=== PATIENT | female | born 1955 | race Caucasian/White ===

== ENCOUNTER 2020-02-03 22:48 | Observation (INO) ==
[2020-02-03] MEDS ORDERED: Aspirin 81 MG TAB.CHEW PO ONE (23:33)
[2020-02-03] MEDS ORDERED: Morphine Sulfate 2 MG/ML SYRINGE IVP ONE (23:55)
[2020-02-03] MEDS ORDERED: Ondansetron 4 MG/2 ML VIAL IVP ONE (23:56)
[2020-02-03 23:59] LABS: Basophils % 0.7 %; Eosinophils # 0.1 K/mcL (0.0-0.6); Eosinophils % 1.7 %; Hematocrit 30.7 % (35.3-44.9); Hemoglobin 9.8 g/dL (11.5-15.4); Immature Granulocytes % 0.3 % (0-4); Lymphocytes # 1.1 K/mcL (0.6-4.6); Lymphocytes % 37.7 %; Mean Corpuscular HGB Conc 31.9 g/dL (31.6-35.5); Mean Corpuscular Hemoglobin 29.3 pg (28.0-33.3); Mean Corpuscular Volume 91.9 fL (83.0-100.0); Mean Platelet Volume 10.4 fL (9.4-12.4); Monocytes # 0.4 K/mcL (0.0-1.3); Monocytes % 12.3 %; Neutrophils # 1.4 K/mcL (1.6-8.9); Platelet Count 102 K/mcL (140-400); Red Blood Count 3.34 M/mcL (3.82-4.97); Red Cell Distribution Width 14.8 % (11.5-14.5); Segmented Neutrophils % 47.3 %
[2020-02-04 00:05] LABS: Prothrombin Time 11.7 Seconds (9.4-12.1)
[2020-02-04 00:06] LABS: Activated Partial Thrombo Time 33.7 Seconds (26.0-36.0)
[2020-02-04 00:09] LABS: BUN/Creatinine Ratio 15 (6-26); Blood Urea Nitrogen 15 mg/dL (8-23); Calcium 8.7 mg/dL (8.6-10.3); Carbon Dioxide 25 mEq/L (23-29); Chloride 102 mEq/L (98-107); Glucose 337 mg/dL (70-105); Osmolality,Calculated 296 (280-300); Potassium 3.8 mEq/L (3.5-5.1); Sodium 136 mEq/L (136-145); eGFR For African Americans > 60 (> 60); eGFR For Non-African Americans 58 (> 60)
[2020-02-04 00:10] LABS: Troponin I < 0.03 ng/mL (< 0.04)
[2020-02-04] MEDS ORDERED: Isovue-370 500 ML BOTTLE IVP ONE (00:17)
[2020-02-04] MEDS ORDERED: Piperacillin/Tazobactam 3.375 GM in 0.9 % Sodium Chloride Mini Bag 100 ML IVPB ONE (02:51)
[2020-02-04] MEDS ORDERED: Furosemide 20 MG/2 ML VIAL IVP ONE (02:55)
[2020-02-04] MEDS ORDERED: Morphine Sulfate 2 MG/ML SYRINGE IVP ONE (02:58)
[2020-02-04] MEDS ORDERED: Ondansetron 4 MG/2 ML VIAL IVP ONE (03:23)
[2020-02-04] MEDS: Nitroglycerin 0.4 MG TAB.SUBL SL SCH ×3 (03:28→03:44)
[2020-02-04] MEDS ORDERED: Naloxone 0.4 MG/ML INJ IVP PRN (04:37)
[2020-02-04] MEDS ORDERED: D5% in Water 1,000 ML IVC PRN (05:15)
[2020-02-04] MEDS ORDERED: *HR* Dextrose 50 % in Water (Syg) 50 ML SYRINGE IVP PRN (05:15)
[2020-02-04] MEDS ORDERED: Dextrose Gel 15 GM/37.5 ML TUBE PO PRN ×2 (05:15)
[2020-02-04 05:39] LABS: Troponin I < 0.03 ng/mL (< 0.04)
[2020-02-04] MEDS: *HR* Heparin 5,000 UNIT/ML VIAL SQ SCH ×2 (06:40→17:29)
[2020-02-04] MEDS ORDERED: Regadenoson 0.4 MG/5 ML SYRINGE IVP ONE (07:43)
[2020-02-04] MEDS: Insulin LISPRO 300 UNITS/3 ML VIAL SQ SCH ×4 (07:52→21:33)
[2020-02-04 08:39] LABS: C-Reactive Protein 9 mg/L (Less than 10)
[2020-02-04] MEDS: Isosorbide MONOnitrate (24 HR) 30 MG TAB.ER.24H PO SCH (08:55)
[2020-02-04] MEDS: carvediloL 6.25 MG TABLET PO SCH ×2 (09:27→21:31)
[2020-02-04] MEDS: Insulin DETEMIR 100 UNIT/ML X5UNITS SQ SCH ×2 (09:28→21:33)
[2020-02-04] MEDS ORDERED: traZODone 50 MG TABLET PO PRN (13:05)
[2020-02-04] MEDS: Sucralfate 1 GM TABLET PO SCH ×2 (17:29→21:31)
[2020-02-04] MEDS: Ondansetron 4 MG/2 ML VIAL IVP PRN (20:04)
[2020-02-04] MEDS ORDERED: traZODone 50 MG TABLET PO SCH (23:00)
[2020-02-04] MEDS ORDERED: traZODone 50 MG TABLET PO ONE (23:46)
[2020-02-05 05:12] LABS: Basophils % 1.1 %; Eosinophils # 0.1 K/mcL (0.0-0.6); Eosinophils % 2.6 %; Hematocrit 30.8 % (35.3-44.9); Hemoglobin 9.7 g/dL (11.5-15.4); Lymphocytes # 1.1 K/mcL (0.6-4.6); Lymphocytes % 40.3 %; Mean Corpuscular HGB Conc 31.5 g/dL (31.6-35.5); Mean Corpuscular Volume 91.9 fL (83.0-100.0); Mean Platelet Volume 10.1 fL (9.4-12.4); Monocytes # 0.3 K/mcL (0.0-1.3); Monocytes % 10.8 %; Neutrophils # 1.2 K/mcL (1.6-8.9); Platelet Count 101 K/mcL (140-400); Red Blood Count 3.35 M/mcL (3.82-4.97); Red Cell Distribution Width 14.6 % (11.5-14.5); Segmented Neutrophils % 45.2 %; White Blood Count 2.7 K/mcL (4.3-11.1)
[2020-02-05 05:23] LABS: BUN/Creatinine Ratio 18 (6-26); Blood Urea Nitrogen 16 mg/dL (8-23); Calcium 8.9 mg/dL (8.6-10.3); Carbon Dioxide 29 mEq/L (23-29); Chloride 102 mEq/L (98-107); Glucose 209 mg/dL (70-105); Osmolality,Calculated 289 (280-300); Sodium 136 mEq/L (136-145); eGFR For African Americans > 60 (> 60); eGFR For Non-African Americans > 60 (> 60)
[2020-02-05] MEDS: *HR* Heparin 5,000 UNIT/ML VIAL SQ SCH ×2 (06:00→17:04)
[2020-02-05] MEDS ORDERED: Regadenoson 0.4 MG/5 ML SYRINGE IVP ONE (06:08)
[2020-02-05] MEDS: Insulin LISPRO 300 UNITS/3 ML VIAL SQ SCH ×4 (07:30→20:53)
[2020-02-05] MEDS: Sucralfate 1 GM TABLET PO SCH ×4 (07:30→20:52)
[2020-02-05] MEDS: Isosorbide MONOnitrate (24 HR) 30 MG TAB.ER.24H PO SCH (10:29)
[2020-02-05] MEDS: carvediloL 6.25 MG TABLET PO SCH ×2 (10:29→20:52)
[2020-02-05] MEDS: Insulin DETEMIR 100 UNIT/ML X5UNITS SQ SCH ×2 (10:35→20:52)
[2020-02-05] MEDS ORDERED: Furosemide 20 MG/2 ML VIAL IVP ONE (13:19)
[2020-02-05] MEDS: Ondansetron 4 MG/2 ML VIAL IVP PRN (15:51)
[2020-02-05] MEDS ORDERED: traZODone 50 MG TABLET PO SCH (21:00)
[2020-02-06] MEDS ORDERED: tiZANidine 4 MG TABLET PO PRN (01:02)
[2020-02-06 05:34] LABS: Hemoglobin 10.2 g/dL (11.5-15.4); Red Cell Distribution Width 14.6 % (11.5-14.5)
[2020-02-06 05:36] LABS: Basophils % 0.7 %; Eosinophils # 0.1 K/mcL (0.0-0.6); Eosinophils % 2.3 %; Hematocrit 32.3 % (35.3-44.9); Immature Granulocytes % 0.3 % (0-4); Immature Platelets 2.1 % (1.1-6.1); Lymphocytes # 1.3 K/mcL (0.6-4.6); Lymphocytes % 42.6 %; Mean Corpuscular HGB Conc 31.6 g/dL (31.6-35.5); Mean Corpuscular Hemoglobin 28.7 pg (28.0-33.3); Mean Corpuscular Volume 90.7 fL (83.0-100.0); Mean Platelet Volume 10.3 fL (9.4-12.4); Monocytes # 0.3 K/mcL (0.0-1.3); Monocytes % 11.1 %; Neutrophils # 1.3 K/mcL (1.6-8.9); Platelet Count 101 K/mcL (140-400); Red Blood Count 3.56 M/mcL (3.82-4.97); White Blood Count 3.1 K/mcL (4.3-11.1)
[2020-02-06 05:49] LABS: BUN/Creatinine Ratio 23 (6-26); Blood Urea Nitrogen 22 mg/dL (8-23); Calcium 8.9 mg/dL (8.6-10.3); Carbon Dioxide 29 mEq/L (23-29); Chloride 101 mEq/L (98-107); Glucose 183 mg/dL (70-105); Osmolality,Calculated 288 (280-300); Potassium 3.7 mEq/L (3.5-5.1); Sodium 135 mEq/L (136-145); eGFR For African Americans > 60 (> 60); eGFR For Non-African Americans 58 (> 60)
[2020-02-06] MEDS: *HR* Heparin 5,000 UNIT/ML VIAL SQ SCH (06:08)
[2020-02-06 07:46] VITALS: BP 136/71
[2020-02-06] MEDS: Insulin LISPRO 300 UNITS/3 ML VIAL SQ SCH (08:06)
[2020-02-06] MEDS: Sucralfate 1 GM TABLET PO SCH (08:06)
[2020-02-06] MEDS: carvediloL 6.25 MG TABLET PO SCH (08:06)
[2020-02-06] MEDS: Isosorbide MONOnitrate (24 HR) 30 MG TAB.ER.24H PO SCH (08:06)
[2020-02-06] MEDS: Insulin DETEMIR 100 UNIT/ML X5UNITS SQ SCH (08:07)
[2020-02-06] MEDS ORDERED: lisinopriL 10 MG TABLET PO SCH (09:00)
== END 2020-02-06 10:26 | disposition home or self-care (01) ==
LOC: 3BNU 22:48 → EMEROOARM 22:48 → 3BNU 02-04 04:26
PROVIDERS: ADMIT Student in an Organized Health Care Education/Training Program; ATTEND Student in an Organized Health Care Education/Training Program

== ENCOUNTER 2020-10-17 10:13 | Inpatient (IN) ==
[2020-10-17 11:57] LABS: Basophils % 0.6 %; Eosinophils # 0.1 K/mcL (0.0-0.6); Eosinophils % 1.7 %; Hematocrit 35.1 % (35.3-44.9); Hemoglobin 11.6 g/dL (11.5-15.4); Immature Granulocytes % 0.3 % (0-4); Lymphocytes # 0.9 K/mcL (0.6-4.6); Lymphocytes % 24.4 %; Mean Corpuscular Hemoglobin 29.8 pg (28.0-33.3); Mean Corpuscular Volume 90.2 fL (83.0-100.0); Mean Platelet Volume 10.5 fL (9.4-12.4); Monocytes # 0.3 K/mcL (0.0-1.3); Monocytes % 8.7 %; Neutrophils # 2.3 K/mcL (1.6-8.9); Platelet Count 108 K/mcL (140-400); Red Blood Count 3.89 M/mcL (3.82-4.97); Segmented Neutrophils % 64.3 %; White Blood Count 3.6 K/mcL (4.3-11.1)
[2020-10-17 12:01] LABS: INR 1.1; Prothrombin Time 13.2 Seconds (9.4-12.1)
[2020-10-17 12:04] LABS: Activated Partial Thrombo Time 29.2 Seconds (26.0-36.0)
[2020-10-17 12:14] LABS: BUN/Creatinine Ratio 21 (6-26); Blood Urea Nitrogen 20 mg/dL (8-23); Calcium 9.3 mg/dL (8.6-10.3); Carbon Dioxide 27 mEq/L (23-29); Chloride 96 mEq/L (98-107); Glucose 383 mg/dL (70-105); Osmolality,Calculated 292 (280-300); Potassium 3.9 mEq/L (3.5-5.1); Sodium 132 mEq/L (136-145); eGFR For African Americans > 60 (> 60); eGFR For Non-African Americans 58 (> 60)
[2020-10-17 12:22] LABS: Troponin I < 0.03 ng/mL (< 0.04)
[2020-10-17] MEDS ORDERED: Naloxone 0.4 MG/ML INJ IVP PRN (14:38)
[2020-10-17] MEDS ORDERED: Aspirin 325 MG TABLET PO ONE (15:07)
[2020-10-17] MEDS ORDERED: Furosemide 20 MG/2 ML VIAL IVP ONE (15:08)
[2020-10-17] MEDS ORDERED: *HR* Dextrose 50 % in Water (Vial) 50 ML VIAL IVP PRN (15:13)
[2020-10-17] MEDS ORDERED: D5% in Water 1,000 ML IVC PRN (15:13)
[2020-10-17] MEDS ORDERED: Dextrose Gel 15 GM/37.5 ML TUBE PO PRN ×2 (15:13)
[2020-10-17] MEDS: Furosemide 40 MG/4 ML VIAL IVP SCH ×2 (18:28→21:20)
[2020-10-17] MEDS: *HR* Heparin 5,000 UNIT/ML VIAL SQ SCH (18:31)
[2020-10-17] MEDS: Insulin LISPRO 300 UNITS/3 ML VIAL SUBQ SCH ×2 (18:32→21:21)
[2020-10-18] MEDS: Ondansetron 4 MG/2 ML VIAL IVP PRN (00:52)
[2020-10-18 02:52] LABS: Thyroid Stimulating Hormone 1.709 mcIU/mL (0.340-5.600)
[2020-10-18 02:55] LABS: Estimated Average Glucose 286 mg/dl; Hemoglobin A1C 11.6 %
[2020-10-18] MEDS: *HR* Heparin 5,000 UNIT/ML VIAL SQ SCH ×2 (06:13→16:20)
[2020-10-18] MEDS: Insulin LISPRO 300 UNITS/3 ML VIAL SUBQ SCH ×4 (10:07→20:42)
[2020-10-18] MEDS: Furosemide 40 MG/4 ML VIAL IVP SCH ×2 (10:07→20:43)
[2020-10-18] MEDS ORDERED: Perflutren Lipid Microsphere 1.3 ML in 0.9 % Sodium Chloride 8.7 ML IVP PRN (12:06)
[2020-10-18] MEDS: Gabapentin 300 MG CAPSULE PO SCH ×2 (16:19→23:24)
[2020-10-18] MEDS: Sucralfate 1 GM TABLET PO SCH ×3 (16:20→20:42)
[2020-10-18] MEDS ORDERED: Isovue-370 500 ML BOTTLE IVP ONE (17:28)
[2020-10-18] MEDS: carvediloL 6.25 MG TABLET PO SCH (20:42)
[2020-10-18] MEDS: traZODone 50 MG TABLET PO SCH (20:44)
[2020-10-19] MEDS: *HR* Heparin 5,000 UNIT/ML VIAL SQ SCH ×2 (05:17→16:57)
[2020-10-19] MEDS ORDERED: Regadenoson 0.4 MG/5 ML SYRINGE IVP ONE (06:28)
[2020-10-19 06:38] LABS: Basophils # 0.1 K/mcL (0.0-0.2); Basophils % 1.2 %; Eosinophils # 0.1 K/mcL (0.0-0.6); Eosinophils % 2.7 %; Hematocrit 36.9 % (35.3-44.9); Hemoglobin 11.8 g/dL (11.5-15.4); Immature Granulocytes % 0.5 % (0-4); Lymphocytes # 1.3 K/mcL (0.6-4.6); Lymphocytes % 32.3 %; Mean Corpuscular Volume 90.7 fL (83.0-100.0); Mean Platelet Volume 10.8 fL (9.4-12.4); Monocytes # 0.5 K/mcL (0.0-1.3); Monocytes % 12.8 %; Platelet Count 123 K/mcL (140-400); Red Blood Count 4.07 M/mcL (3.82-4.97); Red Cell Distribution Width 14.1 % (11.5-14.5); Segmented Neutrophils % 50.5 %; White Blood Count 4.1 K/mcL (4.3-11.1)
[2020-10-19 08:02] LABS: Alanine Aminotransferase 24 Units/L (7-52); Albumin 3.2 g/dL (3.5-5.7); Albumin/Globulin Ratio 0.8 (1.1-2.2); Alkaline Phosphatase 116 Units/L (34-104); Aspartate Amino Transferase 49 Units/L (13-39); BUN/Creatinine Ratio 19 (6-26); Bilirubin,Total 0.8 mg/dL (0.3-1.0); Blood Urea Nitrogen 21 mg/dL (8-23); Calcium 9.2 mg/dL (8.6-10.3); Carbon Dioxide 28 mEq/L (23-29); Chloride 95 mEq/L (98-107); Globulin 4.1 g/dL (2.4-3.5); Glucose 318 mg/dL (70-105); Osmolality,Calculated 287 (280-300); Potassium 3.9 mEq/L (3.5-5.1); Sodium 131 mEq/L (136-145); Total Protein 7.3 g/dL (6.4-8.9); eGFR For African Americans > 60 (> 60); eGFR For Non-African Americans 51 (> 60)
[2020-10-19] MEDS ORDERED: lisinopriL 10 MG TABLET PO SCH (09:00)
[2020-10-19] MEDS ORDERED: Isosorbide MONOnitrate (24 HR) 30 MG TAB.ER.24H PO SCH (09:00)
[2020-10-19] MEDS: Sucralfate 1 GM TABLET PO SCH ×4 (09:20→22:34)
[2020-10-19] MEDS: Gabapentin 300 MG CAPSULE PO SCH ×3 (09:20→23:37)
[2020-10-19] MEDS: Aspirin 81 MG TAB.CHEW PO SCH (09:20)
[2020-10-19] MEDS: Isosorbide MONOnitrate (24 HR) 60 MG TAB.ER.24H PO SCH (09:20)
[2020-10-19] MEDS: Furosemide 40 MG/4 ML VIAL IVP SCH (09:21)
[2020-10-19] MEDS: carvediloL 6.25 MG TABLET PO SCH ×2 (09:21→22:33)
[2020-10-19] MEDS: Insulin DETEMIR 100 UNIT/ML X5UNITS SUBQ SCH ×2 (09:22→22:34)
[2020-10-19] MEDS: Insulin LISPRO 300 UNITS/3 ML VIAL SUBQ SCH ×4 (09:22→22:35)
[2020-10-19] MEDS: Ondansetron 4 MG/2 ML VIAL IVP PRN ×2 (13:26→23:37)
[2020-10-19] MEDS: traZODone 50 MG TABLET PO SCH (22:34)
[2020-10-19 22:57] LABS: Bacteria,Urine Few per hpf (None-Few); Bilirubin,Urine Negative (Negative); Blood,Urine Large (Negative); Clarity,Urine Ex.Turbid (Clear); Color,Urine Yellow (Yellow); Glucose,Urine (UA) 150 mg/dL (Normal); Hyaline Casts,Urine Moderate per lpf (None Seen); Ketones,Urine Negative (Negative); Leukocyte Esterase,Urine Large (Negative); Mucus,Urine Few per lpf (None-Few); Nitrite,Urine Negative (Negative); PH,Urine 5.5 pH Units (5.0-8.0); Protein,Urine 70 mg/dL (Neg-Trace); RBC,Urine 50-100 per hpf (0-3); Specific Gravity,Urine 1.029 (1.010-1.025); Squamous Epithelial Cell,Urine Moderate per hpf (None-Few); WBC,Urine TNTC per hpf (0-3)
[2020-10-20] MEDS: *HR* Heparin 5,000 UNIT/ML VIAL SQ SCH ×2 (04:44→16:54)
[2020-10-20] MEDS: *HR* HYDROcodone/Acet 5/325 mg TABLET PO PRN ×2 (04:44→12:33)
[2020-10-20 05:11] LABS: Calcium 8.4 mg/dL (8.6-10.3); Potassium 3.6 mEq/L (3.5-5.1)
[2020-10-20] MEDS ORDERED: Furosemide 40 MG/4 ML VIAL IVP SCH (09:00)
[2020-10-20] MEDS: Sucralfate 1 GM TABLET PO SCH ×4 (09:08→20:26)
[2020-10-20] MEDS: Gabapentin 300 MG CAPSULE PO SCH ×2 (09:08→16:53)
[2020-10-20] MEDS: Insulin DETEMIR 100 UNIT/ML X5UNITS SUBQ SCH ×2 (09:08→20:28)
[2020-10-20] MEDS: Insulin LISPRO 300 UNITS/3 ML VIAL SUBQ SCH ×7 (09:08→20:28)
[2020-10-20] MEDS: Isosorbide MONOnitrate (24 HR) 60 MG TAB.ER.24H PO SCH (09:08)
[2020-10-20] MEDS: carvediloL 6.25 MG TABLET PO SCH ×2 (09:08→20:26)
[2020-10-20] MEDS: Aspirin 81 MG TAB.CHEW PO SCH (09:08)
[2020-10-20] MEDS ORDERED: 0.9 % Sodium Chloride 1,000 ML IVC SCH (11:15)
[2020-10-20] MEDS: Ondansetron 4 MG/2 ML VIAL IVP PRN ×2 (12:33→20:38)
[2020-10-20] MEDS: traZODone 50 MG TABLET PO SCH (20:27)
[2020-10-21] MEDS: Gabapentin 300 MG CAPSULE PO SCH ×3 (01:05→15:59)
[2020-10-21] MEDS: *HR* HYDROcodone/Acet 5/325 mg TABLET PO PRN ×3 (03:10→15:59)
[2020-10-21] MEDS: cefTRIAXone 1,000 MG in Water for inj. (sterile) 10 ML IVP SCH ×2 (03:11→07:42)
[2020-10-21] MEDS: *HR* Heparin 5,000 UNIT/ML VIAL SQ SCH ×2 (05:26→17:50)
[2020-10-21 05:53] LABS: Basophils % 0.6 %; Eosinophils # 0.1 K/mcL (0.0-0.6); Eosinophils % 3.5 %; Hematocrit 32.8 % (35.3-44.9); Hemoglobin 10.3 g/dL (11.5-15.4); Immature Granulocytes % 0.3 % (0-4); Mean Corpuscular HGB Conc 31.4 g/dL (31.6-35.5); Mean Corpuscular Hemoglobin 28.5 pg (28.0-33.3); Mean Corpuscular Volume 90.9 fL (83.0-100.0); Mean Platelet Volume 10.5 fL (9.4-12.4); Monocytes # 0.4 K/mcL (0.0-1.3); Monocytes % 12.8 %; Neutrophils # 1.9 K/mcL (1.6-8.9); Platelet Count 104 K/mcL (140-400); Red Blood Count 3.61 M/mcL (3.82-4.97); Red Cell Distribution Width 13.7 % (11.5-14.5); Segmented Neutrophils % 53.8 %; White Blood Count 3.5 K/mcL (4.3-11.1)
[2020-10-21 07:09] LABS: BUN/Creatinine Ratio 25 (6-26); Blood Urea Nitrogen 33 mg/dL (8-23); Calcium 8.9 mg/dL (8.6-10.3); Carbon Dioxide 26 mEq/L (23-29); Chloride 95 mEq/L (98-107); Glucose 299 mg/dL (70-105); Osmolality,Calculated 286 (280-300); Potassium 3.6 mEq/L (3.5-5.1); Sodium 129 mEq/L (136-145); eGFR For African Americans 49 (> 60); eGFR For Non-African Americans 40 (> 60)
[2020-10-21] MEDS: Aspirin 81 MG TAB.CHEW PO SCH (07:41)
[2020-10-21] MEDS: carvediloL 6.25 MG TABLET PO SCH ×2 (07:42→21:37)
[2020-10-21] MEDS: Sucralfate 1 GM TABLET PO SCH ×4 (07:42→21:37)
[2020-10-21] MEDS: Isosorbide MONOnitrate (24 HR) 60 MG TAB.ER.24H PO SCH (07:42)
[2020-10-21] MEDS: Insulin LISPRO 300 UNITS/3 ML VIAL SUBQ SCH ×7 (07:43→21:16)
[2020-10-21] MEDS: Insulin DETEMIR 100 UNIT/ML X5UNITS SUBQ SCH ×2 (07:57→21:37)
[2020-10-21] MEDS ORDERED: Nitroglycerin 0.4 MG TAB.SUBL SL PRN (08:02)
[2020-10-21] MEDS ORDERED: Nitroglycerin 0.4 MG TAB.SUBL SL ONE (08:05)
[2020-10-21 08:32] LABS: Troponin I < 0.03 ng/mL (< 0.04)
[2020-10-21] MEDS: traZODone 50 MG TABLET PO SCH (21:38)
[2020-10-22] MEDS: *HR* HYDROcodone/Acet 5/325 mg TABLET PO PRN ×4 (00:11→22:31)
[2020-10-22] MEDS: Gabapentin 300 MG CAPSULE PO SCH ×3 (00:11→15:42)
[2020-10-22 03:15] LABS: Mean Platelet Volume 10.5 fL (9.4-12.4)
[2020-10-22 03:17] LABS: Hematocrit 31.2 % (35.3-44.9); Immature Platelets 2.4 % (1.1-6.1); Mean Corpuscular HGB Conc 32.1 g/dL (31.6-35.5); Mean Corpuscular Hemoglobin 29.2 pg (28.0-33.3); Mean Corpuscular Volume 91.2 fL (83.0-100.0); Red Blood Count 3.42 M/mcL (3.82-4.97); White Blood Count 3.1 K/mcL (4.3-11.1)
[2020-10-22 03:33] LABS: BUN/Creatinine Ratio 27 (6-26); Blood Urea Nitrogen 26 mg/dL (8-23); Calcium 8.8 mg/dL (8.6-10.3); Carbon Dioxide 27 mEq/L (23-29); Chloride 102 mEq/L (98-107); Glucose 239 mg/dL (70-105); Osmolality,Calculated 293 (280-300); Potassium 3.9 mEq/L (3.5-5.1); Sodium 135 mEq/L (136-145); eGFR For African Americans > 60 (> 60); eGFR For Non-African Americans 58 (> 60)
[2020-10-22] MEDS: *HR* Heparin 5,000 UNIT/ML VIAL SQ SCH ×2 (05:43→16:38)
[2020-10-22] MEDS: Aspirin 81 MG TAB.CHEW PO SCH (07:39)
[2020-10-22] MEDS: Sucralfate 1 GM TABLET PO SCH ×4 (07:40→22:30)
[2020-10-22] MEDS: Isosorbide MONOnitrate (24 HR) 60 MG TAB.ER.24H PO SCH (07:40)
[2020-10-22] MEDS: Insulin DETEMIR 100 UNIT/ML X5UNITS SUBQ SCH ×2 (07:40→22:27)
[2020-10-22] MEDS: carvediloL 6.25 MG TABLET PO SCH ×2 (07:40→22:33)
[2020-10-22] MEDS: Insulin LISPRO 300 UNITS/3 ML VIAL SUBQ SCH ×7 (07:40→22:26)
[2020-10-22] MEDS: Ondansetron 4 MG/2 ML VIAL IVP PRN (09:42)
[2020-10-22] MEDS: Furosemide 40 MG TABLET PO SCH (09:42)
[2020-10-22] MEDS ORDERED: polyethylene glycoL 3350 17 GM POWD.PACK PO PRN (13:41)
[2020-10-22] MEDS: traZODone 50 MG TABLET PO SCH (22:31)
[2020-10-23] MEDS: Gabapentin 300 MG CAPSULE PO SCH ×3 (01:05→16:44)
[2020-10-23] MEDS ORDERED: *HR* LORazepam 2 MG/ML VIAL IVP ONE (01:21)
[2020-10-23 04:46] LABS: Hematocrit 31.8 % (35.3-44.9); Immature Platelets 2.2 % (1.1-6.1); Mean Corpuscular HGB Conc 31.4 g/dL (31.6-35.5); Mean Corpuscular Hemoglobin 29.2 pg (28.0-33.3); Mean Platelet Volume 10.3 fL (9.4-12.4); Red Blood Count 3.42 M/mcL (3.82-4.97); Red Cell Distribution Width 14.2 % (11.5-14.5); White Blood Count 3.4 K/mcL (4.3-11.1)
[2020-10-23 05:02] LABS: BUN/Creatinine Ratio 22 (6-26); Blood Urea Nitrogen 20 mg/dL (8-23); Calcium 8.6 mg/dL (8.6-10.3); Carbon Dioxide 30 mEq/L (23-29); Chloride 100 mEq/L (98-107); Glucose 216 mg/dL (70-105); Osmolality,Calculated 291 (280-300); Potassium 3.6 mEq/L (3.5-5.1); Sodium 136 mEq/L (136-145); eGFR For African Americans > 60 (> 60); eGFR For Non-African Americans > 60 (> 60)
[2020-10-23] MEDS: *HR* Heparin 5,000 UNIT/ML VIAL SQ SCH ×2 (07:42→18:27)
[2020-10-23] MEDS: Sucralfate 1 GM TABLET PO SCH ×3 (08:24→16:53)
[2020-10-23] MEDS: Aspirin 81 MG TAB.CHEW PO SCH (08:24)
[2020-10-23] MEDS: *HR* HYDROcodone/Acet 5/325 mg TABLET PO PRN (08:25)
[2020-10-23] MEDS: Furosemide 40 MG TABLET PO SCH (08:25)
[2020-10-23] MEDS: carvediloL 6.25 MG TABLET PO SCH (08:25)
[2020-10-23] MEDS: cefTRIAXone 1,000 MG in Water for inj. (sterile) 10 ML IVP SCH (08:25)
[2020-10-23] MEDS: Isosorbide MONOnitrate (24 HR) 60 MG TAB.ER.24H PO SCH (08:25)
[2020-10-23] MEDS: Insulin LISPRO 300 UNITS/3 ML VIAL SUBQ SCH ×6 (08:29→16:35)
[2020-10-23] MEDS ORDERED: Heparin 1,000 UNITS/500 mL 500 ML ONE (12:26)
[2020-10-23] MEDS ORDERED: *HR* Heparin 10,000 UNIT/10 ML VIAL ONE (12:26)
[2020-10-23] MEDS ORDERED: 0.9 % Sodium Chloride 2,000 ML ONE (12:26)
[2020-10-23] MEDS ORDERED: ISOVUE-370 200 ML INFUS..BTL ONE (12:26)
[2020-10-23] MEDS ORDERED: Nitroglycerin 1,000 MCG/10 ML VIAL IV ONE (12:27)
[2020-10-23] MEDS ORDERED: *HR* Midazolam HCl 2 MG/2 ML VIAL ONE (12:35)
[2020-10-23] MEDS ORDERED: *HR* FentaNYL (PF) 100 MCG/2 ML VIAL ONE (12:36)
[2020-10-23 16:05] VITALS: BP 140/70
[2020-10-23] MEDS: Insulin DETEMIR 100 UNIT/ML X5UNITS SUBQ SCH (16:40)
== END 2020-10-23 19:10 | disposition home or self-care (01) | DRG 286 ==
LOC: EMEROOARM 10:13 → 3BNU 10:13 → SUATTDRO 15:48 → 3BNU 17:26
PROVIDERS: ADMIT Internal Medicine; ATTEND Internal Medicine

== ENCOUNTER 2021-10-25 15:57 | Observation (INO) ==
[2021-10-25] MEDS ORDERED: Ondansetron 4 MG/2 ML VIAL IVP ONE (16:39)
[2021-10-25] MEDS ORDERED: Nitroglycerin 0.4 MG TAB.SUBL SL PRN (16:39)
[2021-10-25] MEDS ORDERED: Morphine Sulfate 2 MG/ML SYRINGE IVP ONE (16:39)
[2021-10-25 18:49] LABS: Basophils % 1.1 %; Eosinophils # 0.1 K/mcL (0.0-0.6); Eosinophils % 2.2 %; Hemoglobin 9.5 g/dL (11.5-15.4); Immature Granulocytes % 0.3 % (0-4); Lymphocytes # 1.3 K/mcL (0.6-4.6); Lymphocytes % 35.4 %; Mean Corpuscular HGB Conc 30.6 g/dL (31.6-35.5); Mean Corpuscular Hemoglobin 29.7 pg (28.0-33.3); Mean Corpuscular Volume 96.9 fL (83.0-100.0); Monocytes # 0.4 K/mcL (0.0-1.3); Monocytes % 9.6 %; Neutrophils # 1.9 K/mcL (1.6-8.9); Platelet Count 111 K/mcL (140-400); Red Cell Distribution Width 14.5 % (11.5-14.5); Segmented Neutrophils % 51.4 %; White Blood Count 3.6 K/mcL (4.3-11.1)
[2021-10-25 18:56] LABS: INR 1.2; Prothrombin Time 13.1 Seconds (9.4-12.1)
[2021-10-25 18:58] LABS: Activated Partial Thrombo Time 35.3 Seconds (26.0-36.0)
[2021-10-25 19:10] LABS: BUN/Creatinine Ratio 12 (6-26); Blood Urea Nitrogen 13 mg/dL (8-23); Calcium 8.6 mg/dL (8.6-10.3); Carbon Dioxide 33 mEq/L (23-29); Chloride 102 mEq/L (98-107); Glucose 58 mg/dL (70-105); Osmolality,Calculated 288 (280-300); Potassium 3.2 mEq/L (3.5-5.1); Sodium 140 mEq/L (136-145); Troponin I < 0.03 ng/mL (< 0.04); eGFR For African Americans > 60 (> 60); eGFR For Non-African Americans 51 (> 60)
[2021-10-25] MEDS ORDERED: Isovue-370 500 ML BOTTLE IVP ONE (19:44)
[2021-10-25 23:05] LABS: Influenza A PCR Negative (Negative); Influenza B PCR Negative (Negative); Resp. Syncytial Virus PCR Negative (Negative)
[2021-10-25 23:06] LABS: SARS-CoV-2 by PCR (In House) Negative (Negative)
[2021-10-26] MEDS ORDERED: Melatonin 3 MG TABLET PO PRN (00:05)
[2021-10-26] MEDS ORDERED: Naloxone 0.4 MG/ML INJ IVP PRN (00:05)
[2021-10-26] MEDS ORDERED: D5% in Water 1,000 ML IVC PRN (00:07)
[2021-10-26] MEDS ORDERED: Dextrose Gel 15 GM/37.5 ML TUBE PO PRN ×2 (00:07)
[2021-10-26] MEDS ORDERED: *HR* Dextrose 50 % in Water (Syg) 50 ML SYRINGE IVP PRN (00:07)
[2021-10-26] MEDS ORDERED: Ondansetron 4 MG/2 ML VIAL IVP PRN (01:50)
[2021-10-26] MEDS ORDERED: *HR* HYDROcodone/Acet 5/325 mg TABLET PO PRN (01:53)
[2021-10-26] MEDS ORDERED: Perflutren Lipid Microsphere 1.3 ML in 0.9 % Sodium Chloride 8.7 ML IVP PRN (02:22)
[2021-10-26 02:27] LABS: Hematocrit 30.2 % (35.3-44.9); Hemoglobin 9.5 g/dL (11.5-15.4); Mean Corpuscular HGB Conc 31.5 g/dL (31.6-35.5); Mean Corpuscular Hemoglobin 30.8 pg (28.0-33.3); Mean Corpuscular Volume 98.1 fL (83.0-100.0); Mean Platelet Volume 9.8 fL (9.4-12.4); Platelet Count 108 K/mcL (140-400); Red Blood Count 3.08 M/mcL (3.82-4.97); Red Cell Distribution Width 14.6 % (11.5-14.5); White Blood Count 4.4 K/mcL (4.3-11.1)
[2021-10-26 02:51] LABS: BUN/Creatinine Ratio 11 (6-26); Blood Urea Nitrogen 12 mg/dL (8-23); Calcium 8.6 mg/dL (8.6-10.3); Carbon Dioxide 29 mEq/L (23-29); Chloride 102 mEq/L (98-107); Glucose 176 mg/dL (70-105); Magnesium 1.7 mg/dL (1.6-2.6); Osmolality,Calculated 286 (280-300); Phosphorous 3.5 mg/dL (2.7-4.5); Potassium 3.8 mEq/L (3.5-5.1); Sodium 136 mEq/L (136-145); Troponin I < 0.03 ng/mL (< 0.04); eGFR For African Americans > 60 (> 60); eGFR For Non-African Americans 52 (> 60)
[2021-10-26] MEDS ORDERED: *HR* LORazepam 0.5 MG TABLET PO PRN (03:37)
[2021-10-26] MEDS ORDERED: GI Cocktail 40 ML EACH PO ONE (03:37)
[2021-10-26] MEDS ORDERED: *HR* Heparin 5,000 UNIT/ML VIAL SQ SCH (06:00)
[2021-10-26] MEDS ORDERED: Regadenoson 0.4 MG/5 ML SYRINGE IVP ONE (06:09)
[2021-10-26] MEDS ORDERED: Pregabalin 75 MG CAPSULE PO SCH (09:00)
[2021-10-26] MEDS ORDERED: Aspirin 81 MG TAB.CHEW PO SCH (09:00)
[2021-10-26] MEDS: Insulin LISPRO 300 UNITS/3 ML VIAL SUBQ SCH ×2 (09:27→12:00)
[2021-10-26] MEDS ORDERED: Prochlorperazine 10 MG/2 ML VIAL IVP ONE (10:00)
[2021-10-26 10:28] VITALS: BP 120/73; PULSE 72; TEMP 99.8; O2SAT 98
[2021-10-26] MEDS ORDERED: Isosorbide MONOnitrate (24 HR) 30 MG TAB.ER.24H PO SCH (13:45)
[2021-10-26] MEDS ORDERED: Ranolazine 500 MG TAB.ER.12H PO SCH (13:45)
[2021-10-26] MEDS ORDERED: carvediloL 6.25 MG TABLET PO SCH (17:00)
[2021-10-26] MEDS ORDERED: Insulin LISPRO 300 UNITS/3 ML VIAL SUBQ SCH (21:00)
== END 2021-10-26 16:22 | disposition home or self-care (01) ==
LOC: 4WAOSI 15:57 → EMEROOARM 15:57 → SUATTDRO 23:56 → 4WAOSI 10-26 00:35
PROVIDERS: ADMIT Internal Medicine; ATTEND Internal Medicine